=== PATIENT | male | born 1980 | race Caucasian/White ===

== ENCOUNTER 2019-10-10 15:17 | Outpatient (CLI) | payer SELFPAY ==
--- NOTE | 2019-10-10 | XR_ITS ---
WS: [id number] CERVICAL SPINE 6 VIEWS HISTORY: NECK PAIN COMPARISON: None available. AP and lateral views with flexion-extension. Straightening of the normal cervical lordosis. Mild motion artifact. With flexion and extension there is no significant instability. Disc spaces and vertebral body heights are normal. Lateral masses are aligned and the odontoid is intact. Soft tissues are normal. XR/XR cervical spine 4-5V [id number] IMPRESSION: Negative cervical spine series. No instability.
== END 2019-10-10 15:18 | disposition home or self-care (01) ==
LOC: RADOUTREAD 10-11 09:12
PROVIDERS: Family Provider Internal Medicine; PCP Internal Medicine; Visit Provider Internal Medicine
DX: M54.2 Cervicalgia (principal); N50.89 Other specified disorders of the male genital organs

== ENCOUNTER 2019-10-11 13:18 | Outpatient (CLI) | payer BC, SELFPAY ==
--- NOTE | 2019-10-11 | US_ITS ---
WS: [id number] TESTICULAR ULTRASOUND HISTORY: TESTICULAR NODULE COMPARISON: None available. TECHNIQUE: Real-time and color Doppler imaging or utilized to perform a testicular ultrasound. Right testicle: 5.5 cm x 3.2 cm x 2.4 cm. Normal size and echogenicity. No mass or torsion. Normal color Doppler is present throughout. Systolic and diastolic velocities are both present. No significant hydrocele. Right epididymis: Normal epididymis with no increased vascularity. Left testicle: 5.6 cm x 1.6 cm x 2.8 cm. Normal size and echogenicity. No mass or torsion. Normal color Doppler is present throughout. Systolic and diastolic velocities are both present. No significant hydrocele. Left epididymis: Simple cyst within the LEFT epididymis measures 1.4 x 1.0 cm. US/US scrotum [id number] IMPRESSION: 1. No testicular mass or torsion. 2. LEFT epididymal cyst.
== END 2019-10-11 13:19 | disposition home or self-care (01) ==
LOC: RADOUTREAD 15:54
PROVIDERS: Family Provider Internal Medicine; PCP Internal Medicine; Referring Provider Internal Medicine; Visit Provider Internal Medicine
DX: N50.89 Other specified disorders of the male genital organs (principal); N50.3 Cyst of epididymis

== ENCOUNTER 2020-06-02 13:25 | Outpatient (CLI) | payer BC, SELFPAY ==
--- NOTE | 2020-06-02 13:49 | MR_ITS ---
WS: [id number] MRI CERVICAL SPINE NONCONTRAST TECHNIQUE: Sagittal T1, T2 and STIR imaging. Axial T2, gradient, and fiesta imaging. CLINICAL INFORMATION: NECK PAIN COMPARISON: None. FINDINGS: Straightening of the normal cervical lordosis. Disc bulging worse at C6-7. Cord signal is normal. Nor mal prevertebral soft tissues. C2-C3: Normal. C3-C4: Disc osteophytic ridging. Moderate left and mild right bony foraminal narrowing. Moderate face t arthropathy. Spinal canal is patent. C4-C5: Disc osteophytic ridging with moderate left foraminal narrowing. Mild right foraminal narrowin g. Moderate facet arthropathy. Spinal canal is patent. C5-C6: Mild bilateral bony foraminal narrowing. Spinal canal is patent. Mild facet arthropathy. C6-C7: Shallow central disc osteophyte protrusion with contact of the cervical cord with mild central canal stenosis. Moderate left and mild right bony foraminal narrowing. Moderate facet arthropathy. C7-T1: Mild to moderate left and no significant right foraminal narrowing. Spinal canal is patent. Visualized brain stem structures: Normal. Prevertebral soft tissues: Normal. MR/MR cervical spin wo con* [id number] IMPRESSION: 1. Straightening of the normal cervical lordosis. No high-grade central canal narrowing. Cord signal is normal. 2. Shallow central disc osteophyte protrusion with contact of the ventral cerv ical cord. Mild central canal stenosis. 3. Mild to moderate bony foraminal narrowing worse at left C3-4, left C4-5, an d bilateral C6-C7 4. Mild to moderate facet arthropathy worse at bilateral C3-4, left C4-5, bila teral C5-C6 and bilateral C6-C7.
== END 2020-06-02 13:26 | disposition home or self-care (01) ==
LOC: RADWPI 13:30
PROVIDERS: Family Provider Internal Medicine; PCP Internal Medicine; Visit Provider Internal Medicine
DX: M25.78 Osteophyte, vertebrae (principal); M48.02 Spinal stenosis, cervical region; M47.812 Spondylosis without myelopathy or radiculopathy, cervical region
CPT/HCPCS: 72141

== ENCOUNTER 2020-09-16 11:08 | Emergency (ER) | payer BC, SELFPAY ==
[2020-09-16 11:12] VITALS: BP 182/109; PULSE 87; RESP 18; TEMP 36.2; O2SAT 97; BMI 32.1
--- NOTE | 2020-09-16 11:28 | ED_ITS ---
HPI - Extremity Problem General: Chief complaint: Extremity Problem,Nontraumatic Stated complaint: SWELLING IN RIGHT LEG Time Seen by Provider: 09/16/20 11:26 History of Present Illness: HPI Narrative: 40 yo female who was recently hospitalized for pancreatitis at another hospital. While he was in inpatient he received Lovenox for DVT prophylaxis at the time of discharge he reported he had a sore swollen area on his leg they thought it was a isolated superficial thrombophlebitis based on the description the patient and family gave. He was discharged 5 days ago and since then his leg has had increasing swelling he denies any chest pain or shortness of breath the leg is significantly uncomfortable enough for him to walk on that he was not able to go to work today. MD Complaint: extremity swelling Onset (ago): day(s) Pain Consistency: constant Location: right and lower extremity Quality: aching Radiation: none Relieving factors: immobilization and rest Exacerbating factors: weight bearing and walking Associated symptoms: Deny arthralgias, chest pain, fever(s), myalgias, rash or short of breath Context: immobilization and history of DVT Review of Systems Const: Denies: fever(s) ENMT: Denies: throat pain, ear or mastoid pain, nasal discharge or nasal congestion Card: Denies: chest pain Resp: Denies: dyspnea, productive cough or non-productive cough GI: Denies: abdominal pain, nausea, vomiting, hematemesis, coffee ground emesis, diarrhea, constipation, bloating, hematochezia or melena : Denies: flank pain, dysuria, urinary frequency or urinary urgency Skin/Breast: Denies: rash PFSH ED PFSH: Medical History (Updated 09/16/20 @ 12:05 by Jesus Paniagua DO) DVT (deep venous thrombosis) Pancreatitis Social History Smoking and tobacco status: current every day smoker Physical Exam Const: COMMON NORMALS: no acute distress GENERAL APPEARANCE: cooperative and comfortable ORIENTATION/CONSCIOUSNESS: Yes awake, Yes oriented to person, Yes oriented to place and Yes oriented to time HENMT: COMMON NORMALS: normocephalic, atraumatic and hearing grossly normal bilaterally HEAD & SCALP: normocephalic and atraumatic Neck/C-Spine: COMMON NORMALS: no JVD Resp: COMMON NORMALS: normal respiratory effort, No retractions, No use of accessory muscles and clear to auscultation bilaterally AUSCULTATION: clear to auscultation bilaterally Cardio: COMMON NORMALS: no JVD, regular rate, regular rhythm and No murmurs present (Cardio) RATE: regular rate RHYTHM: regular rhythm GI: COMMON NORMALS: Soft to palpation and No hepatosplenomegaly present AUSCULTATION: Yes normoactive bowel sounds PALPATION: Yes Soft to palpation, No Tenderness to palpation present (GI), No Guarding due to palpation present (GI) and Yes No hepatosplenomegaly present Extremity: COMMON NORMALS: normal to inspection, capillary refill normal, no clubbing, cyanosis or edema, no calf tenderness and no pedal edema Neuro: SENSORIUM/ORIENTATION: Yes oriented to person, Yes oriented to place and Yes oriented to time Skin: COMMON NORMALS: no rashes or lesions noted GENERAL SKIN EXAM: no rashes or lesions noted Course Vital Signs: Vital signs: Vital Signs Temperature 97.2 F L 09/16/20 11:12 Pulse Rate 87 09/16/20 11:12 Respiratory Rate 18 09/16/20 11:12 Blood Pressure 182/109 09/16/20 11:12 Pulse Oximetry 97 09/16/20 11:12 MDM - Extremity (Nontraumatic) MDM Narrative: Medical decision making narrative: Ultrasound shows clot in the femoral vein for its entire length. He has no shortness of breath no chest pain no tachycardia we will start him on Eliquis 10 mg twice daily for 7 days and 5 mg twice daily if he develops any shortness of breath chest pain or other problems return to the emergency room. Discharge Plan Discharge Patient Disposition: Home Clinical Impression: Deep vein thrombosis of lower extremity Condition: Stable Prescriptions: New Eliquis DVT-PE Treat 30D Start 5 mg (74 tabs) tablets,dose pack See Rx Instructions .ROUTE .COMPLEX Qty: 74 RF: 0 No Action metformin 500 mg tablet 500 mg PO BID RF: 0 Jardiance 25 mg tablet 25 mg PO DAILY RF: 0 aspirin [Adult Aspirin Regimen] 81 mg tablet,delayed release (DR/EC) 81 mg PO DAILY RF: 0 lisinopril 40 mg tablet 40 mg PO DAILY RF: 0 meloxicam [Mobic] 15 mg tablet 15 mg PO DAILY RF: 0 cephalexin [Keflex] 500 mg capsule 500 mg PO BID 10 Days Qty: 20 RF: 0 Discharge Orders: Discharge ED (Routine); Ordered 09/16/20 Ordered By: Jesus Paniagua Referrals: Eric Jimenez DO [Primary Care Provider] - Activity Restrictions/Additional Instructions: Start Eliquis as directed per package. 2 tablets twice a day for 7 days then 1 tablet twice a day. Coding Level of Care Code ED Exceptional Student Education Aide for Chg Fwd Exam Comprehensive
--- NOTE | 2020-09-16 11:28 | USCV_ITS ---
Bronson Madison Age: 40 Gender: M : 1980 Exam Date: 09/16/2020 11:46 Ordering Phys: Jesus Paniagua DO Technologist: Vicente Klein Exam Location: [facility] [place]_ Indication: LEG SWELLING PROCEDURES: Venous duplex imaging was performed in only the right lower extremity. The following venous structures were evaluated: common femoral vein, profunda vein, proximal portion of the greater saphenous vein, superficial femoral vein, and the popliteal vein. In addition, the posterior tibial and peroneal trunk were evaluated. Serial compression, augmentation maneuvers, and spectral Doppler flow evaluation were performed. FINDINGS: There is thrombus in the RLE extending from the CFV all the way down to the PTs. There is also clot noted in the GSV throughout the RLE- could be residual from previous. Festus Mata MD Edited by: PRATIBHA Battery Charger Tester (Electronically Signed) Final Date: 17 September 2020 14:42 Amended: 17 September 2020 14:42 C
[2020-09-16] MEDS: enoxaparin 120 mg/0.8 mL Syringe 110 MG SUBCUT (12:29)
[2020-09-16 12:36] VITALS: BP 135/88; PULSE 80; RESP 18; O2SAT 97
== END 2020-09-16 12:37 | disposition home or self-care (01) ==
PROVIDERS: Emergency Provider Family Medicine; PCP Internal Medicine
DX: I82.411 Acute embolism and thrombosis of right femoral vein (principal); Z79.82 Long term (current) use of aspirin; F17.210 Nicotine dependence, cigarettes, uncomplicated
CPT/HCPCS: 12345; 93971; 96372; 99281; 99283; J1650

== ENCOUNTER → 2020-10-29 12:03 | Outpatient (BNVA) | payer BC, SELFPAY | PROVIDERS: PCP Internal Medicine; Referring Provider Nurse Practitioner Family; Visit Provider Podiatrist Foot & Ankle Surgery | DX: M79.671 Pain in right foot (principal) | CPT/HCPCS: 73630 ==

== ENCOUNTER 2021-05-25 14:20 | Outpatient (CLI) | payer BC, SELFPAY | END 2021-05-25 14:21 | disposition home or self-care (01) | LOC: WOUND 14:21 | PROVIDERS: PCP Internal Medicine; Visit Provider Thoracic Surgery (Cardiothoracic Vascular Surgery) | DX: I96 Gangrene, not elsewhere classified (principal); E11.622 Type 2 diabetes mellitus with other skin ulcer; L97.812 Non-pressure chronic ulcer of other part of right lower leg with fat layer exposed; F17.210 Nicotine dependence, cigarettes, uncomplicated | CPT/HCPCS: 11042; G0463 ==

== ENCOUNTER 2021-06-01 13:54 | Outpatient (CLI) | payer BC, SELFPAY | END 2021-06-01 13:55 | disposition home or self-care (01) | LOC: WOUND 13:54 | PROVIDERS: PCP Internal Medicine; Visit Provider Nurse Practitioner Family | DX: E11.622 Type 2 diabetes mellitus with other skin ulcer (principal); L97.812 Non-pressure chronic ulcer of other part of right lower leg with fat layer exposed; F17.210 Nicotine dependence, cigarettes, uncomplicated | CPT/HCPCS: 11042 ==

== ENCOUNTER 2021-06-15 13:50 | Outpatient (CLI) | payer BC, SELFPAY | END 2021-06-15 13:51 | disposition home or self-care (01) | LOC: WOUND 13:51 | PROVIDERS: PCP Internal Medicine; Visit Provider Emergency Medicine | DX: E11.622 Type 2 diabetes mellitus with other skin ulcer (principal); L97.812 Non-pressure chronic ulcer of other part of right lower leg with fat layer exposed; F17.210 Nicotine dependence, cigarettes, uncomplicated | CPT/HCPCS: 11042 ==

== ENCOUNTER 2021-06-22 13:47 | Outpatient (CLI) | payer BC, SELFPAY | END 2021-06-22 13:48 | disposition home or self-care (01) | LOC: WOUND 13:48 | PROVIDERS: PCP Internal Medicine; Visit Provider Emergency Medicine | DX: E11.622 Type 2 diabetes mellitus with other skin ulcer (principal); L97.812 Non-pressure chronic ulcer of other part of right lower leg with fat layer exposed; F17.210 Nicotine dependence, cigarettes, uncomplicated | CPT/HCPCS: 11042; A6219 ==

== ENCOUNTER 2021-06-25 13:00 | Outpatient (CLI) | payer BC, SELFPAY ==
--- NOTE | 2021-06-25 | USCV_ITS ---
LE Venous Duplex RIGHT Bronson Madison Age: 41 Gender: M : 1980 Exam Date: 06/25/2021 13:34 Ordering Phys: Chuy Brown MD (Andy) ([email or web address]) Technologist: Calista Young Exam Location: [facility] Indication: RIGHT LEG PAIN HISTORY: Lower extremity pain. PROCEDURES: Venous duplex imaging was performed in only the right lower extremity. The following venous structures were evaluated: common femoral vein, profunda vein, proximal portion of the greater saphenous vein, superficial femoral vein, and the popliteal vein. In addition, the posterior tibial and peroneal trunk were evaluated. FINDINGS: There appears to be thrombus present in the RT mid and distal FV, Rt Popliteal, and throughout Rt GSV. CONCLUSIONS DVT right mid and distal femoral vein, popliteal, and superficial thrombus GSV Prelim to Dr. Lane by Yarn Winder at time of exam Festus Mata MD (Electronically Signed) Final Date: 26 June 2021 09:53 S
== END 2021-06-25 13:01 | disposition home or self-care (01) ==
LOC: RAD 13:04
PROVIDERS: PCP Family Medicine; Visit Provider Thoracic Surgery (Cardiothoracic Vascular Surgery)
DX: M79.604 Pain in right leg (principal); L97.812 Non-pressure chronic ulcer of other part of right lower leg with fat layer exposed; I87.2 Venous insufficiency (chronic) (peripheral); I82.411 Acute embolism and thrombosis of right femoral vein; I82.431 Acute embolism and thrombosis of right popliteal vein; I82.811 Embolism and thrombosis of superficial veins of right lower extremity
CPT/HCPCS: 93971

== ENCOUNTER 2021-06-26 10:32 | Outpatient (CLI) | payer BC, SELFPAY ==
--- NOTE | 2021-06-26 14:48 | ONC CON_ITS ---
Dr. Del Valle New Patient Note Patient: Bronson Madison Unit #: [id number]: 1980 Dicatated By: Eric Del Valle M.D.Date of Visit: Jun 26, 2021 Onc MED New Patient/Consult Referring Physician: [facility] Chief Complaint: Deep vein thrombosis. History of Present Illness: This is a 41-year-old man with deep vein thrombosis of the right leg, suspected to be recurrent. He has a known history of right lower extremity thromboses. His first episode occurred somewhere in the mid 1999 range. By their recollection, he was treated with Lovenox for 10 days followed by aspirin prophylaxis. He had no further thrombosis until September 2020 when he was admitted to [facility] with acute pancreatitis in association with severe hypertriglyceridemia. At that time he had developed swelling in the right leg. A venous Doppler on 09/16/2020 showed thrombus in the right lower extremity extending from the common femoral vein all the way down to the posterior tibial vein and peroneal trunk. Clot also was noted in the greater saphenous vein throughout the right leg. He has been on anticoagulation with apixaban, administered in the standard fashion of 10 mg twice daily for 7 days followed by 5 mg twice daily. He has since then been followed at wound care for management of a venous stasis ulceration on the right leg. The ulceration apparently has been showing improvement on treatment, but as part of that management he had a venous Doppler done yesterday. The preliminary report is that it is showing thrombus in the right mid and distal femoral vein and right popliteal vein. There is also thrombus noted throughout the right greater saphenous vein. He has been feeling pretty good generally, though he does report having some fatigue. He is working full-time as a cook, and he is on his feet most of the day. His ECOG score is 0. He has good appetite. He has no fever or night sweats. He has a smoker's cough. He does not complain of shortness of breath or chest pain. He has no GI or complaints other than occasional acid reflux. He has some joint pain in his hands and feet, he also has some lower back pain. He has occasional sinus headache and he occasionally has dizziness. He has some numbness in his hands. He has no other focal neurologic symptoms. He does not sleep well at night, and he also tends to have daytime somnolence. Past Medical History: Mr. Madison's medical history includes history of acute pancreatitis, history of right lower extremity deep vein thrombosis, hypertension, hypertriglyceridemia, and type II diabetes. 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 Medications: Apixaban 1 Tablet (of 5 mg) Oral b.i.d., Atorvastatin Calcium 1 Tablet (of 80 mg) Oral daily, basiglar 50 Unit(s) b.i.d., Cholecalciferol 1 Tablet (of 50 mcg ) Oral daily, Gemfibrozil 1 Tablet (of 600 mg) Oral b.i.d., Lisinopril 1 Tablet (of 40 mg) Oral daily, Metoprolol Tartrate 1 Tablet (of 25 mg) Oral daily, novalog PRN, Zinc 1 Tablet (of 50 mg) Oral daily Allergies: No Known Allergies. Social History: Mr. Madison is . He has history of smoking 1 pack of cigarettes daily for 20 years. He has moderate alcohol use estimated at 3-4 beers once or twice a week. Family History: Father had heart disease. Mother with ovarian cancer. A brother and a sister are in good health, to his knowledge. Review Of Symptoms: Constitutional - He has some fatigue and he has daytime somnolence, but he works full-time, and he has normal activity. He has good appetite. He has no fever or night sweats. ECOG score is 0, Eyes - No change in vision, ENMT - No hearing loss. He has tinnitus. Recently he has had some sinus drainage. No mouth sores. No sore throat or difficulty swallowing, Hematologic/Lymphatic - No abnormal bruising or bleeding, Respiratory - No shortness of breath. He has a smoker's cough. No pleuritic pain or hemoptysis, Cardiovascular - No angina pain. No palpitations, Gastrointestinal - No nausea or vomiting. He occasionally has acid reflux. No diarrhea or constipation. No blood in the stool or black stools, Genitourinary (M) - No dysuria or hematuria. No urinary frequency. No urgency or incontinence, Musculoskeletal - He has some joint pain in his hands and feet, and he also has some lower back pain, Integumentary - He has been going to wound care for an ulceration on the right lower leg. It has been showing gradual healing, Neurologic - He has occasional sinus headache. He occasionally has dizziness. He has some numbness in his hands. No other focal neurologic symptoms, Psychiatric - He has some anxiety. No depression. He does not sleep well at night. Vital Signs: Performed on Jun 26, 2021 11:40: 3, 3, 34.59 (HIGH), 2.47 sq.m, 74 in, 95 % (LOW), 89 /min, 18 /min, 133/94 mm(hg), 97.8 F (LOW), and 269.4 lbs (HIGH). Physical Examination: Constitutional - He appears to be in good general health, Eyes - Sclerae nonicteric. Conjunctivae clear, ENMT - No lesions noted in the oral cavity, Neck - No mass or thyromegaly, Hematologic/Lymphatic - No cervical, clavicular, or axillary adenopathy, Respiratory - Lungs are clear with good air movement bilaterally, Cardiovascular - Heart rhythm is regular. There is no murmur, gallop, or rub noted, Abdomen - Mildly distended. Liver and spleen are not enlarged. There is no abdominal mass or ascites noted and there is no inguinal adenopathy, Back/Spine - No spine or CVA tenderness noted, Extremities - There is chronic swelling of the right leg with the right calf circumference measuring 47 cm compared to 42 cm on the left. He has palpable dorsalis pedis pulses bilaterally, Integumentary - There are venous stasis changes in the medial aspect of the lower right leg. Within the inferior portion there is a small area of open ulceration. There are no suspicious skin lesions noted, Neurologic - No focal neurologic deficits noted. Problem List: 1. Deep vein thrombosis and superficial thrombosis involving the right lower extremity. 2. Hypertension. 3. Hyperlipidemia. 4. Type 2 diabetes. 5. History of acute pancreatitis in association with severe hypertriglyceridemia. Problems Addressed with this Encounter and Plan: 1. Patient with both deep vein thrombosis and superficial thrombosis of the right leg. His initial episode occurred in 2008 and was apparently treated with short-term anticoagulation. He then developed extensive deep vein thrombosis and superficial thrombosis of the right leg in September 2020. He has since then been on anticoagulation with apixaban. His repeat venous Doppler yesterday continues to show extensive deep vein thrombosis and superficial thrombosis in the right leg, but at this point it is uncertain to what extent that may be chronic or acute. If there is any component of acute thrombosis, it would represent a failure to anticoagulation with apixaban. For the time being, he will continue the apixaban at 5 mg twice daily pending review of the venous Doppler studies. He has advised that he needs to stop smoking. 2. He has developed venous insufficiency of the right leg, which certainly indicates that at least some component of this is chronic. There is an associated venous stasis ulceration on the right leg. 3. He has a poor sleep pattern and he has fatigue and excessive daytime somnolence, and he does need to be evaluated with a sleep study. Signed By: Eric Del Valle M.D. <<Signature on File>>
== END 2021-06-26 10:33 | disposition home or self-care (01) ==
LOC: ONCMED 10:37
PROVIDERS: PCP Family Medicine; Visit Provider Internal Medicine Medical Oncology
DX: I82.511 Chronic embolism and thrombosis of right femoral vein (principal); I82.551 Chronic embolism and thrombosis of right peroneal vein; I82.541 Chronic embolism and thrombosis of right tibial vein; I10 Essential (primary) hypertension; E78.5 Hyperlipidemia, unspecified; E11.9 Type 2 diabetes mellitus without complications; Z79.01 Long term (current) use of anticoagulants; Z79.899 Other long term (current) drug therapy
CPT/HCPCS: 99205

== ENCOUNTER 2021-06-29 09:43 | Outpatient (CLI) | payer BC, SELFPAY | END 2021-06-29 09:44 | disposition home or self-care (01) | LOC: WOUND 09:47 | PROVIDERS: PCP Family Medicine; Visit Provider Emergency Medicine | DX: E11.622 Type 2 diabetes mellitus with other skin ulcer (principal); L97.812 Non-pressure chronic ulcer of other part of right lower leg with fat layer exposed; F17.210 Nicotine dependence, cigarettes, uncomplicated | CPT/HCPCS: 11042 ==

== ENCOUNTER 2021-07-03 06:30 | Outpatient (CLI) | payer BC, SELFPAY ==
[2021-07-08 12:38] LABS: Heparin XA Low Molecular 0.92 IU/mL
== END 2021-07-03 06:31 | disposition home or self-care (01) ==
LOC: ONCMED 06:31
PROVIDERS: PCP Family Medicine; Visit Provider Internal Medicine Medical Oncology
DX: I82.401 Acute embolism and thrombosis of unspecified deep veins of right lower extremity (principal); I10 Essential (primary) hypertension; E78.5 Hyperlipidemia, unspecified; E11.9 Type 2 diabetes mellitus without complications; Z87.898 Personal history of other specified conditions
CPT/HCPCS: 36415; 85520

== ENCOUNTER 2021-07-06 09:45 | Outpatient (CLI) | payer BC, SELFPAY | END 2021-07-06 09:46 | disposition home or self-care (01) | LOC: WOUND 09:45 | PROVIDERS: PCP Family Medicine; Visit Provider Emergency Medicine | DX: E11.622 Type 2 diabetes mellitus with other skin ulcer (principal); L97.812 Non-pressure chronic ulcer of other part of right lower leg with fat layer exposed; F17.210 Nicotine dependence, cigarettes, uncomplicated | CPT/HCPCS: 11042 ==

== ENCOUNTER 2021-07-16 07:51 | Outpatient (CLI) | payer BC, SELFPAY | END 2021-07-16 07:52 | disposition home or self-care (01) | LOC: WOUND 07:52 | PROVIDERS: PCP Family Medicine; Visit Provider Emergency Medicine | DX: E11.622 Type 2 diabetes mellitus with other skin ulcer (principal); L97.812 Non-pressure chronic ulcer of other part of right lower leg with fat layer exposed; F17.210 Nicotine dependence, cigarettes, uncomplicated | CPT/HCPCS: 11042 ==

== ENCOUNTER 2021-07-23 08:15 | Outpatient (CLI) | payer BC, SELFPAY | END 2021-07-23 08:16 | disposition home or self-care (01) | LOC: WOUND 08:15 | PROVIDERS: PCP Family Medicine; Visit Provider Emergency Medicine | DX: E11.622 Type 2 diabetes mellitus with other skin ulcer (principal); L97.812 Non-pressure chronic ulcer of other part of right lower leg with fat layer exposed; F17.210 Nicotine dependence, cigarettes, uncomplicated | CPT/HCPCS: 15271; Q4186 ==

== ENCOUNTER 2021-07-30 08:16 | Outpatient (CLI) | payer BC, SELFPAY | END 2021-07-30 08:17 | disposition home or self-care (01) | LOC: WOUND 08:17 | PROVIDERS: PCP Family Medicine; Visit Provider Nurse Practitioner Family | DX: Z09 Encounter for follow-up examination after completed treatment for conditions other than malignant neoplasm (principal); F17.210 Nicotine dependence, cigarettes, uncomplicated; I73.9 Peripheral vascular disease, unspecified | CPT/HCPCS: 99212 ==

== ENCOUNTER 2021-08-11 08:49 | Outpatient (CLI) | payer BC, SELFPAY ==
--- NOTE | 2021-08-11 15:52 | ONC FU_ITS ---
Dr. Del Valle Patient Follow-Up Note Patient: Bronson Madison Unit #: [id number]: 1980 Dicatated By: Eric Del Valle M.D.Date of Visit:Aug 11, 2021 Onc Med Follow-up/Prog Note Chief Complaint: Deep vein thrombosis. History of Present Illness: This is a 41-year-old man with recurrent deep vein thrombosis of the right leg. He has a known history of right lower extremity thromboses. His first episode occurred somewhere in the mid 1999 range. By his recollection, he was treated with Lovenox for 10 days followed by aspirin prophylaxis. He had no further thrombosis until September 2020 when he was admitted to [facility] with acute pancreatitis in association with severe hypertriglyceridemia. At that time he had developed swelling in the right leg. A venous Doppler on 09/16/2020 showed thrombus in the right lower extremity extending from the common femoral vein all the way down to the posterior tibial vein and peroneal trunk. Clot also was noted in the greater saphenous vein throughout the right leg. He has been on anticoagulation with apixaban, administered in the standard fashion of 10 mg twice daily for 7 days followed by 5 mg twice daily. He was then followed at wound care for management of a venous stasis ulceration on the right leg. A repeat venous doppler on 06/25/2021 showed thrombus in the right mid and distal femoral vein and right popliteal vein. There was also thrombus noted throughout the right greater saphenous vein. I had seen him initially on 06/26/2021. After review of the Doppler studies with the radiologist, I did opt to have him restart anticoagulation with Lovenox for 10 days. He then transitioned back to apixaban 5 mg twice daily. He is seen now for a follow-up visit. He has had some improvement in the right leg since my initial visit with him, though he still has some swelling and discomfort associated with chronic venous insufficiency. The ulceration has healed. He is working, but he does have fatigue and he also complains of daytime somnolence. ECOG score is 1. He has good appetite. He has no fever or night sweats. He is seeing a dentist for an abscessed tooth. He has some chronic cough, and he is trying to quit smoking. He does not complain of shortness of breath or chest pain. He has no GI or complaints. He has no other significant joint or bone pain. He has no focal neurologic symptoms. Medications: Apixaban 1 Tablet (of 5 mg) Oral b.i.d., Atorvastatin Calcium 1 Tablet (of 80 mg) Oral daily, basiglar 50 Unit(s) b.i.d., Cholecalciferol 1 Tablet (of 50 mcg ) Oral daily, Gemfibrozil 1 Tablet (of 600 mg) Oral b.i.d., Lisinopril 1 Tablet (of 40 mg) Oral daily, Metoprolol Tartrate 1 Tablet (of 25 mg) Oral daily, novalog PRN, Zinc 1 Tablet (of 50 mg) Oral daily Allergies: No Known Allergies. Vital Signs: Performed on Aug 11, 2021 12:44 Height - 74.00 in Weight - 260.2 lbs (LOW) BSA - 2.43 sq.m BMI - 33.41 (HIGH) Temperature - 98.3 F (LOW) Pulse - 83 /min Respiration - 18 /min BP - 138/92 mm(hg) O2 Sat - 96 % Pain - 4 Fatigue - 5 Physical Examination: Constitutional - He looks pretty good generally, Eyes - Sclerae nonicteric. Conjunctivae clear, ENMT - No lesions noted in the oral cavity, Hematologic/Lymphatic - No cervical, clavicular, or axillary adenopathy, Respiratory - Lungs are clear with good air movement bilaterally, Cardiovascular - Heart rhythm is regular. There is no murmur, gallop, or rub noted, Abdomen - Soft. Liver and spleen are not enlarged. There is no abdominal mass or ascites noted and there is no inguinal adenopathy, Extremities - There are severe venous stasis changes involving the lower right leg. There is only mild swelling. There is some residual scar at the site of the ulceration in the medial lower right leg, but it is completely healed, Neurologic - No focal neurologic deficits noted. Problem List: 1. Recurrent deep vein thrombosis of the right leg. He has associated chronic venous insufficiency. 2. Hypertension. 3. Hyperlipidemia. 4. Type 2 diabetes. 5. History of acute pancreatitis in association with severe hypertriglyceridemia. Problems Addressed with this Encounter and Plan: 1. Patient with both deep vein thrombosis and superficial thrombosis of the right leg. His initial episode occurred in 2008 and was apparently treated with short-term anticoagulation. He then developed extensive deep vein thrombosis and superficial thrombosis of the right leg in September 2020. He then began on anticoagulation with apixaban. His repeat venous Doppler in June 2021 showed extensive deep vein thrombosis and superficial thrombosis in the right leg. At that point it was uncertain to what extent the thrombosis may been chronic, but at some component did appear to be acute. As such, I did opt to change his anticoagulation to Lovenox for 10 days. He then transition back to apixaban 5 mg twice daily. He has since then had some improvement in the right leg, but he clearly has a significant component of chronic venous insufficiency, he will need to continue long-term anticoagulation. At this point he will continue regular follow-up with Dr. Blanton. I will plan to see him again as needed. 3. He reprted having a poor sleep pattern and he has had fatigue and excessive daytime somnolence. He will be scheduled for a sleep study. He will have further evaluation as indicated. Signed By: Eric Del Valle M.D. <<Signature on File>>
== END 2021-08-11 08:50 | disposition home or self-care (01) ==
LOC: ONCMED 08:51
PROVIDERS: PCP Family Medicine; Visit Provider Internal Medicine Medical Oncology
DX: I82.501 Chronic embolism and thrombosis of unspecified deep veins of right lower extremity (principal); I87.2 Venous insufficiency (chronic) (peripheral); I10 Essential (primary) hypertension; E78.5 Hyperlipidemia, unspecified; E11.9 Type 2 diabetes mellitus without complications; E78.1 Pure hyperglyceridemia; Z86.39 Personal history of other endocrine, nutritional and metabolic disease; Z79.01 Long term (current) use of anticoagulants; Z79.899 Other long term (current) drug therapy
CPT/HCPCS: G0463

== ENCOUNTER 2024-03-15 13:24 | Emergency (ER) | payer BC, SELFPAY ==
[2024-03-15 13:52] VITALS: BP 230/154; PULSE 82; RESP 18; TEMP 37; O2SAT 96; BMI 33.3
[2024-03-15] MEDS: ketorolac 30 mg/mL INJ IVP (14:52)
[2024-03-15] MEDS: morphine 4 mg/mL SDV 1 mL IVP (14:54)
[2024-03-15] MEDS: orphenadrine 30 mg/mL Inj 2 mL 60 MG IM (14:54)
[2024-03-15] MEDS: dexamethasone 10 mg/mL INJ IM (14:54)
[2024-03-15 15:11] LABS: Basophils # 0.1 10^3/uL (0.0-0.1); Basophils % 0.8 %; Eosinophils # 0.1 10^3/uL (0.0-0.8); Eosinophils % 0.8 %; Lymphocytes # 3.1 10^3/uL (0.8-4.8); Lymphocytes % 34.9 %; Mean Corpuscular HGB Conc 35.6 g/dL (30-55); Mean Corpuscular Hemoglobin 28.8 pg (27-33); Mean Corpuscular Volume 80.8 fl (82-101); Mean Platelet Volume 9.6 fL (7.4-10.4); Monocytes # 0.5 10^3/uL (0.2-0.9); Monocytes % 5.9 %; Neutrophils # 5.04 10^3/uL (1.8-7.7); Neutrophils % 57.4 %; Nucleated Red Blood Cells % 0 %; Platelet Count 263 10^3/cmm (157-399); Red Blood Count 5.94 10^6/uL (3.85-5.65); Red Cell Distribution Width 12.6 % (12.1-15.1); White Blood Count 8.79 10^3/uL (3.29-11.43)
[2024-03-15 15:16] VITALS: BP 200/129; PULSE 74; O2SAT 94
--- NOTE | 2024-03-15 15:31 | W.ED.BACK ---
HPI - Back Pain/Injury General: Chief Complaint: Back Pain/Injury Stated Complaint: lower back pain Time Seen by Provider: 03/15/24 14:42 Source: patient Mode of arrival: ambulatory History of Present Illness: 44-year-old male comes in complaining of low back pain this been going on intermittently for the last 3 weeks he has tried various [id number] medications and techniques massages Tylenol topical analgesics heat and cold none of which seems to have relieved that it is actually progressively getting worse. Patient has pain radiating down into the right leg and lateral thigh. He has no saddle paresthesias. No fecal incontinence no urinary retention. No specific trauma he thinks this is related or to his work. He does a lot of heavy lifting and moving at work although he can isolate a particular incident or episode that seem to cause it suddenly. No trauma or falls no previous surgery to his back. He does have a history of PEs he is on apixaban. No increased leg swelling no chest pain or shortness of breath. MD elicited complaint: back pain Pertinent past history: prior back pain Onset (ago): week(s) (3) Timing: constant Quality: sharp Location: lumbar spine Radiation: right upper leg Exacerbating factors: movement, walking and lifting Relieving factors: immobilization and supine Associated symptoms: Reports weakness; Deny abdominal pain, arthralgias, chills, change in bowel habits, difficulty walking, dysuria, fatigue, fecal incontinence, fever(s), hematuria, myalgias, nausea, numbness, syncope, tingling/numbness/burning, urinary frequency, urinary urgency or vomiting Treatments prior to arrival: cold therapy, heat therapy, NSAIDS, acetaminophen and other (Massage) Review of Systems Const: Denies: fever(s), chills or fatigue Card: Denies: chest pain or syncope Resp: Denies: dyspnea GI: Denies: abdominal pain, nausea, vomiting, fecal incontinence or change in bowel habits : Denies: dysuria, urinary frequency, urinary urgency or hematuria Musc: Denies: neck pain or back pain Skin/Breast: Denies: rash Neuro: Denies: difficulty walking [facility] ED PFSH: Medical History Plantar fasciitis of right foot Diabetes mellitus Peripheral Vascular Disease Pes planus of both feet Pancreatitis DVT (deep venous thrombosis) Social History Smoking and tobacco/nicotine status: current every day tobacco/nicotine user Physical Exam Const: GENERAL APPEARANCE: cooperative ORIENTATION/CONSCIOUSNESS: Yes awake, Yes oriented to person, Yes oriented to place and Yes oriented to time HENMT: COMMON NORMALS: normocephalic, atraumatic and hearing grossly normal bilaterally HEAD & SCALP: normocephalic and atraumatic Resp: COMMON NORMALS: normal respiratory effort, No retractions, No use of accessory muscles and clear to auscultation bilaterally AUSCULTATION: clear to auscultation bilaterally Cardio: COMMON NORMALS: regular rate, regular rhythm and No murmurs present (Cardio) RATE: regular rate RHYTHM: regular rhythm GI: COMMON NORMALS: Soft to palpation and No hepatosplenomegaly present AUSCULTATION: Yes normoactive bowel sounds PALPATION: Yes Soft to palpation, No Tenderness to palpation present (GI), No Guarding due to palpation present (GI) and Yes No hepatosplenomegaly present Back/Pelvis: OTHER: Straight leg raising is negative. Sensation lower extremities normal. Dorsum plantarflexion 5 of 5 Extremity: COMMON NORMALS: normal to inspection, capillary refill normal, no clubbing, cyanosis or edema, no calf tenderness and no pedal edema Neuro: SENSORIUM/ORIENTATION: Yes oriented to person, Yes oriented to place and Yes oriented to time Skin: COMMON NORMALS: no rashes or lesions noted GENERAL SKIN EXAM: no rashes or lesions noted Course Vital Signs: Vital signs: Vital Signs Temperature 98.6 F 03/15/24 13:52 Pulse Rate 81 03/15/24 18:06 Respiratory Rate 18 03/15/24 13:52 Blood Pressure 164/98 03/15/24 17:30 Pulse Oximetry 97 03/15/24 18:06 Oxygen Delivery Me thod Room Air 03/15/24 17:30 MDM - Back Pain/Injury Medical Decision Making Patient has lumbar back pain with some radiculopathy consistent with an L4 V nerve root irritation. No red flag symptoms no trauma history he has improvement with the medications given in the emergency room will start him on anti-inflammatory steroid taper muscle relaxers. Additionally patient's blood pressure is markedly elevated add amlodipine 10 mg daily have him follow-up with her primary care doctor return if he has worsening symptoms. Differential Diagnosis Likely lumbar radiculopathy, sciatica and strain of lumbar region Medical Records I reviewed the patient's medical records. Labs I reviewed the patient's lab results. 03/15/24 15:01 03/15/24 15:01 Laboratory Results WBC 8.79 10^3/uL (3.29-11.43) 03/15/24 15:01 RBC 5.94 10^6/uL (3.85-5.65) H 03/15/24 15:01 Hgb 17.10 g/dL (11.27-16.99) H 03/15/24 15:01 Hct 48.0 % (37-53) 03/15/24 15: MCV 80.8 fl (82-101) L 03/15/24 15:01 MCH 28.8 pg (27-33) 03/15/24 15:01 MCHC 35.6 g/dL (30-55) 03/15/24 15:01 RDW 12.6 % (12.1-15.1) 03/15/24 15:01 Plt Count 263 10^3/cmm (157-399) 03/15/24 15:01 MPV 9.6 fL (7.4-10.4) 03/15/24 15:01 Neut % (Auto) 57.4 % 03/15/24 15:01 Lymph % (Auto) 34.9 % 03/15/24 15:01 [place] % (Auto) 5.9 % 03/15/24 15:01 Eos % (Auto) 0.8 % 03/15/24 15: Baso % (Auto) 0.8 % 03/15/24 15:01 Neut # (Auto) 5.04 10^3/uL (1.8-7.7) 03/15/24 15:01 Lymph # (Auto) 3.1 10^3/uL (0.8-4.8) 03/15/24 15:01 [place] # (Auto) 0.5 10^3/uL (0.2-0.9) 03/15/24 15:01 Eos # (Auto) 0.1 10^3/uL (0.0-0.8) 03/15/24 15:01 Baso # (Auto) 0.1 10^3/uL (0.0-0.1) 03/15/24 15:01 Nucleated RBC % (auto) 0 % 03/15/24 15:01 Nucleated RBCs # 0.0 /100WBC 03/15/24 15:01 Sodium 136 mmol/L (136-145) 03/15/24 15:01 Potassium 3.7 mmol/L (3.5-5.1) 03/15/24 15:01 Chloride 99 mmol/L (98-107) 03/15/24 15:01 Carbon Dioxide 25 mmol/L (22-29) 03/15/24 15:01 Anion Gap 15.7 (5-19) 03/15/24 15:01 BUN 12 mg/dL (6-20) 03/15/24 15:01 Creatinine 0.8 mg/dL (0.7-1.2) 03/15/24 15:01 GFR Calculation 105.0 mL/min (90-130) 03/15/24 15:01 Glucose 147 mg/dL (65-115) H 03/15/24 15:01 Calculated Osmolality 284 mOsm/kg (285-295) L 03/15/24 15:01 Calcium 9.0 mg/dL (8.5-10.5) 03/15/24 15:01 Total Bilirubin 0.6 mg/dL (0.15-1.2) 03/15/24 15:01 AST 24 U/L (0-40) 03/15/24 15:01 ALT 26 U/L (0-41) 03/15/24 15:01 Alkaline Phosphatase 70 U/L (40-130) 03/15/24 15:01 Total Protein 7.1 g/dL (6.6-8.7) 03/15/24 15:01 Albumin 4.2 g/dL (3.5-5.2) 03/15/24 15:01 Globulin 2.9 g/dL (1.3-4.6) 03/15/24 15:01 No radiology studies performed this visit Discharge Plan Discharge Patient Disposition: Home Clinical Impression: Lumbar radiculopathy, HTN (hypertension) Condition: Stable Prescriptions: New tizanidine 4 mg tablet 4 mg PO Q6H PRN (Reason: muscle spasticity) Qty: 20 0RF Rx Instructions: do not exceed 3 doses per 24 hrs prednisone 20 mg tablet 20 mg PO TID Qty: 15 0RF Rx Instructions: 1 p.o. 3 times daily x3 days, 1 p.o. twice daily x2 days, 1 p.o. daily x2 days diclofenac sodium 75 mg tablet,delayed release (DR/EC) 75 mg PO Q12H PRN (Reason: pain) Qty: 20 0RF amlodipine 10 mg tablet 10 mg PO DAILY Qty: 30 0RF No Action lisinopril 40 mg tablet 40 mg PO DAILY Janelleaglpaulo [place] U-100 Insulin 100 unit/mL (3 mL) insulin pen 50 unit SUBCUT BID atorvastatin 40 mg tablet 40 mg PO DAILY gemfibrozil 600 mg tablet 600 mg PO BID (DME) Accommodative Orthotics See Rx Instructions .Route .MEDSUPPLY Qty: 1 0RF Rx Instructions: As directed triamcinolone acetonide 0.1 % ointment 1 applic topical BID Qty: 453.6 1RF Rx Instructions: Apply to affected area no more than 2 weeks/month. Not for use on face. amoxicillin 500 mg capsule 500 mg PO BID metoprolol tartrate 25 mg tablet 12.5 mg PO BID erythromycin 5 mg/gram (0.5 %) ointment 1 applic ophthalmic (eye) QID Qty: 3.5 0RF Rx Instructions: Apply every 3 hrs while awake, do not exceed 6x per day Eliquis DVT-PE Treat 30D Start 5 mg (74 tabs) tablets,dose pack See Rx Instructions .ROUTE .COMPLEX Qty: 74 0RF Rx Instructions: orally per package directions Discharge Orders: Discharge ED (Routine); Ordered 03/15/24 Ordered By: Jesus Paniagua Referrals: Becky Blanton DO [Primary Care Provider] - Discharge Diet: Usual diet Discharge Activity: Increase activity as tolerated Patient Instructions: Acute Low Back Pain (ED), Opioid Safety, Pain Management Activity Restrictions/Additional Instructions: Thank you for choosing [facility] for your healthcare needs today. It is very important that you follow up as instructed or that you return to the Emergency Department should you have concerns or if your condition changes or worsens in any way. Follow-up with your primary care doctor if pain persists or worsens. You should also follow-up with your primary care doctor to reevaluate your blood pressure. Coding Level of Care Code ED Electronic Parts Salesperson for Joan Demarco
[2024-03-15 16:09] LABS: Alanine Aminotransferase 26 U/L (0-41); Albumin Level 4.2 g/dL (3.5-5.2); Alkaline Phosphatase 70 U/L (40-130); Anion Gap 15.7 (5-19); Aspartate Amino Transferase 24 U/L (0-40); Blood Urea Nitrogen 12 mg/dL (6-20); Carbon Dioxide 25 mmol/L (22-29); Chloride 99 mmol/L (98-107); Creatinine Clr Calc Pharmacy 160.8227; Globulin 2.9 g/dL (1.3-4.6); Glucose 147 mg/dL (65-115); Osmolality Calculated 284 mOsm/kg (285-295); Potassium 3.7 mmol/L (3.5-5.1); Sodium 136 mmol/L (136-145); Total Bilirubin 0.6 mg/dL (0.15-1.2); Total Protein 7.1 g/dL (6.6-8.7)
[2024-03-15] MEDS: labetalol 5 mg/mL SDV 20mL 10 MG IVP (16:32)
[2024-03-15] MEDS: hyDRALAzine 20 mg/mL INJ 1 mL 10 MG IVP (16:33)
[2024-03-15 17:30] VITALS: BP 164/98; PULSE 80; O2SAT 95
[2024-03-15 18:06] VITALS: PULSE 81; O2SAT 97
== END 2024-03-15 18:07 | disposition home or self-care (01) ==
PROVIDERS: Emergency Provider Family Medicine; PCP Family Medicine
DX: M54.16 Radiculopathy, lumbar region (principal); I10 Essential (primary) hypertension; E11.51 Type 2 diabetes mellitus with diabetic peripheral angiopathy without gangrene; Z79.899 Other long term (current) drug therapy; Z79.01 Long term (current) use of anticoagulants; Z86.711 Personal history of pulmonary embolism; Z86.718 Personal history of other venous thrombosis and embolism; F17.210 Nicotine dependence, cigarettes, uncomplicated
CPT/HCPCS: 80053; 85025; 96372; 96374; 96375; 99284; J0360; J1100; J1885; J2270; J2360; J3490

== ENCOUNTER 2024-07-03 18:43 | Emergency (ER) | payer BC, SELFPAY ==
[2024-07-03] VITALS (10 sets, daily range): BP systolic 113–152; BP diastolic 71–91; PULSE 68–77; RESP 14–19; TEMP 36.4; O2SAT 95–99
--- NOTE | 2024-07-03 19:07 | XRR_ITS ---
PROCEDURE INFORMATION: Exam: XR Chest Exam date and time: 07/03/2024 7:15 PM Age: 44 years old Clinical indication: Pain; Chest pressure; Additional info: Left chest wall pain TECHNIQUE: Imaging protocol: Radiologic exam of the chest. Views: 1 view. COMPARISON: CR XR chest 2V* [id number] 02/12/2019 7:40 PM FINDINGS: Lungs: Unremarkable. No consolidation. Pleural spaces: Unremarkable. No pleural effusion. No pneumothorax. Heart/Mediastinum: Unremarkable. No cardiomegaly. Bones/joints: Unremarkable. XR/XR chest 1V portable [id number] IMPRESSION: No acute findings.
--- NOTE | 2024-07-03 19:09 | ED_ITS ---
HPI - Back Pain/Injury 2 General: Chief Complaint: Back Pain/Injury Stated Complaint: Low BP,Fall, Back and Knee pain Time Seen by Provider: 07/03/24 19:00 Source: patient and family Mode of arrival: ambulatory Limitations: no limitations History of Present Illness: Patient is a 44-year-old male presenting to the emergency department for a fall onset prior to arrival. Patient states he has been dizzy throughout the day, states he was smoking a cigarette today when he suddenly woke up on the deck, unsure why he fell or what might of caused it. He denies any symptoms prior to the incident. Notes that he is currently on blood thinners for DVTs in his right lower extremity. He does note that since the fall he is having severe left-sided anterior chest wall pain, worse with deep breathing. No other significant injuries from the fall, specifically no head trauma and no neurological symptoms to report. He is on metoprolol, lisinopril, and states he recently was started on Lasix. Spouse states the main concern and why they came to the emergency department was because after the incident, patient took his blood pressure and found to be hypotensive for him, as he normally runs 150s/90s, and was 100s/40s. MD elicited complaint: fall Onset (ago): minute(s) Associated symptoms: Deny abdominal pain, chills, dysuria, fatigue, fever(s), nausea or vomiting Related Data Home Medications Medication Instructions Recorded Confirmed lisinopril 40 mg tablet 40 mg PO DAILY 04/23/20 04/02/23 atorvastatin 40 mg tablet 40 mg PO DAILY 10/29/20 04/02/23 gemfibrozil 600 mg tablet 600 mg PO BID 10/29/20 04/02/23 insulin glargine 100 unit/mL (3 50 unit SUBCUT BID 10/29/20 04/02/23 mL) subcutaneous pen (Basaglar KwikPen U-100 Insulin) amoxicillin 500 mg capsule 500 mg PO BID 04/02/23 04/02/23 metoprolol tartrate 25 mg tablet 12.5 mg PO BID 04/02/23 04/02/23 Previous Rx's Medication Instructions Recorded apixaban 5 mg (74 tabs) tablets in See Rx Instructions PO .COMPLEX 09/16/20 a dose pack (Eliquis DVT-PE Treat #74 ea 30D Start) Accommodative Orthotics #1 ea 10/29/20 triamcinolone acetonide 0.1 % 1 applic topical BID #453.6 grams 11/26/22 topical ointment erythromycin 5 mg/gram (0.5 %) eye 1 applic ophthalmic (eye) QID #3.5 04/02/23 ointment (3.5 gram tube) grams amlodipine 10 mg tablet 10 mg PO DAILY #30 tabs 03/15/24 diclofenac sodium 75 mg 75 mg PO Q12H PRN pain #20 tabs 03/15/24 tablet,delayed release prednisone 20 mg tablet 20 mg PO TID #15 tabs 03/15/24 tizanidine 4 mg tablet 4 mg PO Q6H PRN muscle spasticity 03/15/24 #20 tabs Allergies Allergy/AdvReac Type Severity Reaction Status Date / Time gabapentin Allergy Unknown Verified 07/03/24 18:54 Review of Systems 2 General: Reports: 10 or more systems reviewed and unremarkable except in HPI and below Const: Reports: other (Fall); Denies: fever(s), chills or fatigue Eyes: Denies: change in vision ENMT: Denies: throat pain, ear or mastoid pain or nasal discharge Card: Reports: chest pain (Left anterior chest wall); Denies: palpitations, swelling of feet/ankles or lightheadedness Resp: Denies: dyspnea, productive cough or wheezing GI: Denies: abdominal pain, nausea, vomiting, diarrhea or constipation : Denies: flank pain, difficulty urinating, dysuria or urinary frequency Musc: Denies: neck pain, back pain or joint pain Skin/Breast: Denies: rash Neuro: Reports: dizziness; Denies: headache(s), numbness in extremities or weakness in extremities PFSH ED 2 PFSH: Medical History Plantar fasciitis of right foot Diabetes mellitus Peripheral Vascular Disease Pes planus of both feet Pancreatitis DVT (deep venous thrombosis) Social History Smoking and tobacco/nicotine status: current every day tobacco/nicotine user Physical Exam 2 Const: COMMON NORMALS: no acute distress, patient oriented x3 and no limitations GENERAL APPEARANCE: cooperative, comfortable and well developed ORIENTATION/CONSCIOUSNESS: Yes awake, Yes oriented to person, Yes oriented to place and Yes oriented to time HENMT: COMMON NORMALS: normocephalic, atraumatic and hearing grossly normal bilaterally HEAD & SCALP: normocephalic and atraumatic Eye: COMMON NORMALS: Equal, round and reactive pupils present, EOMs intact bilaterally and conjunctivae normal CONJUNCTIVA: Yes conjunctivae normal P UPIL: Yes Equal, round and reactive pupils present Neck/C-Spine: COMMON NORMALS: full ROM, supple and no JVD Chest: OTHER: There is reproducible tenderness to palpation to the left anterior chest wall extending to the lateral chest wall, no step-off deformity Resp: COMMON NORMALS: normal respiratory effort, No retractions, No use of accessory muscles and clear to auscultation bilaterally AUSCULTATION: clear to auscultation bilaterally Cardio: COMMON NORMALS: no JVD, regular rate, regular rhythm, No clicks present (Cardio), No murmurs present (Cardio) and No rub (Cardio) RATE: r egular rate RHYTHM: regular rhythm GI: COMMON NORMALS: Normal to inspection, nondistended, normoactive bowel sounds present, Soft to palpation and non-tender AUSCULTATION: Yes normoactive bowel sounds PALPATION: Yes Soft to palpation RECTAL EXAM: Yes deferred Extremity: COMMON NORMALS: normal to inspection, full ROM and capillary refill normal Neuro: COMMON NORMALS: patient oriented x3, CN's II-XII intact bilaterally, moves all extremities, no focal motor deficits and no sensory deficits noted SENSORIUM/ORIENTATION: Yes oriented to person, Yes oriented to place and Yes oriented to time Skin: COMMON NORMALS: no rashes or lesions noted GENERAL SKIN EXAM: no rashes or lesions noted Course 2 Vital Signs: Vital signs: Vital Signs Temperature 97.6 F 07/03/24 18:48 Pulse Rate 71 07/03/24 21:04 Respiratory Rate 18 07/03/24 22:18 Blood Pressure 131/76 07/03/24 21:04 Pulse Oximetry 99 07/03/24 21:04 Oxygen Delivery Me thod Room Air 07/03/24 21:04 MDM - Back Pain/Injury Medical Decision Making Patient had presented after a fall today, unknown what may have caused it, no symptoms prior to and states that he did not hit his head but did injure his left chest. His primary complaint was the pain to the left chest, family in room and noted his blood pressure was hypotensive for him after she took it. Of note, he was started on Lasix this past month, and additionally takes metoprolol and lisinopril for blood pressure. Currently is on Eliquis for DVTs. Initially EKG obtained and reviewed with physician showed normal sinus rhythm rate of 69 with no acute STEMI or other arrhythmias. His initial troponin elevated at 31, and upon further discussion with patient, family clarifies that his troponin has been chronically elevated. CBC unremarkable, CMP did show some signs of dehydration with hyponatremia, bump in creatinine and BUN. Chest x-ray did not demonstrate any rib fractures or acute cardiopulmonary processes. A repeat troponin showed a 3 point bump to 34, and repeat EKG again was normal showing normal sinus rhythm rate of 67 with no STEMI. A urinalysis was negative, urine drug screen just showed marijuana which she states he has smoked prior and never had issues with syncope and collapse. Initially Tylenol ordered, did not seem to help. Was started on fluids for the clinical dehydration. Due to the trend in troponin and patient's history, I spoke with Dr. Sanders, who states that this could be admitted for an observation for a syncope, however could also be treated and monitored at home after head CT rules out any intracranial pathology. CT head was negative, and after given patient for morphine is rechecked and notes significant improvement in his pain. I did have shared decision making with patient and family in the room, who elects that they do not think admission is necessary at this time and can treat/monitor at home with serial blood pressures and close monitoring. His following episode could be secondary to the dehydration as a result of recent Lasix addition to his medications, though other etiologies include orthostatic hypotension or mechanical fall. Thoroughly discussed with patient and family reasons to return, of which they understand. All other questions and concerns addressed at this time. This patient's case was discussed with Dr. Bird who agrees with disposition. Labs 07/03/24 19:10 07/03/24 19:10 Radiology Impressions Chest X-Ray 07/03/24 19:07 IMPRESSION: No acute findings. Head CT 07/03/24 22:10 IMPRESSION: 1. No acute intracranial abnormality. 2. Small-vessel ischemic disease. Laboratory Results WBC 9.29 10^3/uL (3.29-11.43) 07/03/24 19:10 RBC 5.23 10^6/uL (3.85-5.65) 07/03/24 19:10 Hgb 15.30 g/dL (11.27-16.99) 07/03/24 19:10 Hct 43.1 % (37-53) 07/03/24 19:10 MCV 82.4 fl (82-101) 07/03/24 19:10 MCH 29.3 pg (27-33) 07/03/24 19:10 MCHC 35.5 g/dL (30-55) 07/03/24 19:10 RDW 11.5 % (12.1-15.1) L 07/03/24 19:10 Plt Count 270 10^3/cmm (157-399) 07/03/24 19:10 MPV 10.1 fL (7.4-10.4) 07/03/24 19:10 Neut % (Auto) 45.3 % 07/03/24 19:10 Lymph % (Auto) 44.0 % 07/03/24 19:10 [place] % (Auto) 6.8 % 07/03/24 19:10 Eos % (Auto) 2.3 % 07/03/24 19:10 Baso % (Auto) 1.0 % 07/03/24 19:10 Neut # (Auto) 4.21 10^3/uL (1.8-7.7) 07/03/24 19:10 Lymph # (Auto) 4.1 10^3/uL (0.8-4.8) 07/03/24 19:10 [place] # (Auto) 0.6 10^3/uL (0.2-0.9) 07/03/24 19:10 Eos # (Auto) 0.2 10^3/uL (0.0-0.8) 07/03/24 19:10 Baso # (Auto) 0.1 10^3/uL (0.0-0.1) 07/03/24 19:10 Nucleated RBC % (auto) 0 % 07/03/24 19:10 Nucleated RBCs # 0.0 /100WBC 07/03/24 19:10 Sodium 132 mmol/L (136-145) L 07/03/24 19:10 Potassium 3.7 mmol/L (3.5-5.1) 07/03/24 19:10 Chloride 92 mmol/L (98-107) L 07/03/24 19:10 Carbon Dioxide 24 mmol/L (22-29) 07/03/24 19:10 Anion Gap 19.7 (5-19) H 07/03/24 19:10 BUN 42 mg/dL (6-20) H 07/03/24 19:10 Creatinine 1.7 mg/dL (0.7-1.2) H 07/03/24 19:10 GFR Calculation 44.0 mL/min (90-130) L 07/03/24 19:10 Glucose 179 mg/dL (65-115) H 07/03/24 19:10 Calculated Osmolality 289 mOsm/kg (285-295) 07/03/24 19:10 Calcium 8.9 mg/dL (8.5-10.5) 07/03/24 19:10 Total Bilirubin 0.2 mg/dL (0.15-1.2) 07/03/24 19:10 AST 28 U/L (0-40) 07/03/24 19:10 ALT 31 U/L (0-41) 07/03/24 19:10 Alkaline Phosphatase 66 U/L (40-130) 07/03/24 19:10 Troponin T Baseline 31 ng/L (0-15) H 07/03/24 19:10 Troponin T 120 Minute 34.23 ng/L (0-15) H 07/03/24 21:14 Delta Troponin T 3.23 ABS# (0-10) 07/03/24 21:14 Total Protein 7.2 g/dL (6.6-8.7) 07/03/24 19:10 Albumin 4.2 g/dL (3.5-5.2) 07/03/24 19:10 Globulin 3.0 g/dL (1.3-4.6) 07/03/24 19:10 Urine Color Yellow (Yellow) 07/03/24 19:32 Urine Appearance Clear (CLEAR) 07/03/24 19:32 Urine pH 5.5 (5-7) 07/03/24 19:32 Ur Specific [place] 1.011 (1.005-1.030) 07/03/24 19:32 Urine Protein Negative (Negative) 07/03/24 19:32 Urine Glucose (UA) 3+ (Normal) H 07/03/24 19:32 Urine Ketones Negative (Negative) 07/03/24 19:32 Urine Blood Negative (Negative) 07/03/24 19:32 Urine Nitrate Negative (Negative) 07/03/24 19:32 Urine Bilirubin Negative (Negative) 07/03/24 19:32 Urine Urobilinogen 0.2 mg/dL (Negative) 07/03/24 19:32 Ur Leukocyte Esterase Negative (Negative) 07/03/24 19:32 Amorphous Sediment Not Reportable 07/03/24 19:32 Urine Opiates Screen Negative ng/mL (Negative) 07/03/24 19:32 Ur Barbiturates Screen Negative ng/mL (Negative) 07/03/24 19:32 Ur Phencyclidine Scrn Negative ng/mL (Negative) 07/03/24 19:32 Ur Amphetamines Screen Negative ng/mL (Negative) 07/03/24 19:32 U Benzodiazepines Scrn Negative ng/mL (Negative) 07/03/24 19:32 Urine Cocaine Screen Negative ng/mL (Negative) 07/03/24 19:32 U Marijuana (THC) Screen Positive ng/mL (Negative) H 07/03/24 19:32 All radiology interpretation(s) finalized by discharge Discharge Plan Discharge Patient Disposition: Home Clinical Impression: Acute dehydration Chest wall contusion Qualifiers: Encounter type: initial encounter Laterality: left Qualified Code(s): S20.212A - Contusion of left front wall of thorax, initial encounter Condition: Stable Prescriptions: No Action lisinopril 40 mg tablet 40 mg PO DAILY Janelleaglpaulo [place] U-100 Insulin 100 unit/mL (3 mL) insulin pen 50 unit SUBCUT BID atorvastatin 40 mg tablet 40 mg PO DAILY gemfibrozil 600 mg tablet 600 mg PO BID (DME) Accommodative Orthotics See Rx Instructions .Route .MEDSUPPLY Qty: 1 0RF Rx Instructions: As directed triamcinolone acetonide 0.1 % ointment 1 applic topical BID Qty: 453.6 1RF Rx Instructions: Apply to affected area no more than 2 weeks/month. Not for use on face. amoxicillin 500 mg capsule 500 mg PO BID metoprolol tartrate 25 mg tablet 12.5 mg PO BID erythromycin 5 mg/gram (0.5 %) ointment 1 applic ophthalmic (eye) QID Qty: 3.5 0RF Rx Instructions: Apply every 3 hrs while awake, do not exceed 6x per day Eliquis DVT-PE Treat 30D Start 5 mg (74 tabs) tablets,dose pack See Rx Instructions .ROUTE .COMPLEX Qty: 74 0RF Rx Instructions: orally per package directions tizanidine 4 mg tablet 4 mg PO Q6H PRN (Reason: muscle spasticity) Qty: 20 0RF Rx Instructions: do not exceed 3 doses per 24 hrs prednisone 20 mg tablet 20 mg PO TID Qty: 15 0RF Rx Instructions: 1 p.o. 3 times daily x3 days, 1 p.o. twice daily x2 days, 1 p.o. daily x2 days diclofenac sodium 75 mg tablet,delayed release (DR/EC) 75 mg PO Q12H PRN (Reason: pain) Qty: 20 0RF amlodipine 10 mg tablet 10 mg PO DAILY Qty: 30 0RF Discharge Orders: Discharge ED (Routine); Ordered 07/03/24 Ordered By: Soren Coombs Referrals: Becky Blanton DO [Primary Care Provider] - Discharge Diet: As Directed Discharge Activity: Increase activity as tolerated Patient Instructions: Dehydration (ED), Chest Wall Pain (ED), Pain Management Activity Restrictions/Additional Instructions: Keep plan with follow-up with primary care as discussed. Continue taking your medications as prescribed. Adequate fluid intake, and pulmonary hygiene as discussed. You may apply ice for added relief, and take Tylenol. With any new or concerning symptoms he may have, please return for reevaluation. Stand Alone Forms: Work/School Release Coding Level of Care Code ED Shipping Assistant for Joan Demarco
--- NOTE | 2024-07-03 19:11 | ECG_ITS ---
[facility] Test Date: 2024-07-03 Pat Name: Bronson Madison Department: Room: Gender: Male Product Strategy Director: : 1980 Requested By: Yana Gao Order Number: [id number] Jessica MD: Benny Ricci M.D. Measurements Intervals [place] Rate: 69 P: 7 VT: 170 QRS: 5 QRSD: 105 T: 44 QT: 386 QTc: 415 Interpretive Statements SINUS RHYTHM Compared to ECG 02/12/2019 17:46:29 Sinus tachycardia no longer present Intraventricular conduction delay no longer present T-wave abnormality no longer present Electronically Signed On 07-04-2024 23:36:53 CDT by Benny Ricci M.D. [id number]
[2024-07-03 19:18] LABS: Basophils # 0.1 10^3/uL (0.0-0.1); Eosinophils # 0.2 10^3/uL (0.0-0.8); Eosinophils % 2.3 %; Hematocrit 43.1 % (37-53); Lymphocytes # 4.1 10^3/uL (0.8-4.8); Mean Corpuscular HGB Conc 35.5 g/dL (30-55); Mean Corpuscular Hemoglobin 29.3 pg (27-33); Mean Corpuscular Volume 82.4 fl (82-101); Mean Platelet Volume 10.1 fL (7.4-10.4); Monocytes # 0.6 10^3/uL (0.2-0.9); Monocytes % 6.8 %; Neutrophils # 4.21 10^3/uL (1.8-7.7); Neutrophils % 45.3 %; Nucleated Red Blood Cells % 0 %; Platelet Count 270 10^3/cmm (157-399); Red Blood Count 5.23 10^6/uL (3.85-5.65); Red Cell Distribution Width 11.5 % (12.1-15.1); White Blood Count 9.29 10^3/uL (3.29-11.43)
[2024-07-03 19:37] LABS: Troponin(5th) Baseline 31 ng/L (0-15)
[2024-07-03 19:46] LABS: Alanine Aminotransferase 31 U/L (0-41); Albumin Level 4.2 g/dL (3.5-5.2); Alkaline Phosphatase 66 U/L (40-130); Anion Gap 19.7 (5-19); Aspartate Amino Transferase 28 U/L (0-40); Blood Urea Nitrogen 42 mg/dL (6-20); Calcium 8.9 mg/dL (8.5-10.5); Carbon Dioxide 24 mmol/L (22-29); Chloride 92 mmol/L (98-107); Creatinine Clr Calc Pharmacy 74.2582; Glucose 179 mg/dL (65-115); Osmolality Calculated 289 mOsm/kg (285-295); Potassium 3.7 mmol/L (3.5-5.1); Sodium 132 mmol/L (136-145); Total Bilirubin 0.2 mg/dL (0.15-1.2); Total Protein 7.2 g/dL (6.6-8.7)
[2024-07-03 19:50] LABS: Add Urine Microscopic? NO
[2024-07-03 19:54] LABS: Bilirubin Urine Negative (Negative); Blood Urine Negative (Negative); Glucose Urine UA 3+ (Normal); Ketones Urine Negative (Negative); Leukocyte Esterase Urine Negative (Negative); Nitrate Urine Negative (Negative); Protein Urine Negative (Negative); Specific Gravity, Urine 1.011 (1.005-1.030); Urine Appearance Clear (CLEAR); Urine Color Yellow (Yellow); Urobilinogen Urine 0.2 mg/dL (Negative); pH Urine 5.5 (5-7)
[2024-07-03 20:01] LABS: Amphetamines Screen Urine Negative (Negative); Barbiturates Screen Urine Negative (Negative); Benzodiazepines Screen Urine Negative (Negative); Cocaine Screen Urine Negative (Negative); Opiate Screen Urine Negative (Negative); PCP Screen Urine Negative (Negative); THC Screen Urine Positive (Negative)
[2024-07-03 20:03] LABS: Charge for UA Resulting for Rev
[2024-07-03] MEDS: sodium chloride 0.9% 1,000 ML 999 ML IV (20:27)
[2024-07-03] MEDS: acetaminophen 500 mg Tablet 1000 MG PO (20:48)
--- NOTE | 2024-07-03 21:08 | ECG_ITS ---
[facility] Test Date: 2024-07-03 Pat Name: Bronson Madison Department: Room: Gender: Male Technology Strategist: : 1980 Requested By: Soren Loredo Order Number: [id number] Lopez MD: Benny Ricci M.D. Measurements Intervals [place] Rate: 67 P: 6 MS: 160 QRS: 7 QRSD: 100 T: 38 QT: 405 QTc: 430 Interpretive Statements SINUS RHYTHM Compared to ECG 07/03/2024 19:11:36 No significant changes Electronically Signed On 07-04-2024 23:44:16 CDT by Benny Ricci M.D. [id number]
[2024-07-03 21:45] LABS: Troponin 5 2HR 34.23 ng/L (0-15); Troponin 5 2HR Delta 3.23 ABS# (0-10)
--- NOTE | 2024-07-03 22:10 | CTR_ITS ---
PROCEDURE INFORMATION: Exam: CT Head Without Contrast Exam date and time: 07/03/2024 10:32 PM Age: 44 years old Clinical indication: Other: Passed out TECHNIQUE: Imaging protocol: Computed tomography of the head without contrast. Radiation optimization: All CT scans at this facility use at least one of these dose optimization techniques: automated exposure control; mA and/or kV adjustment per patient size (includes targeted exams where dose is matched to clinical indication); or iterative reconstruction. COMPARISON: MR cervical spin wo con* [id number] 06/02/2020 1:39 PM RADIATION DOSE METRICS: Total DLP (mGy-cm): 1220.74 FINDINGS: Brain: Subcortical and periventricular white matter changes consistent with small-vessel ischemic disease in the appropriate clinical setting. Small-vessel ischemic disease. No acute intracranial abnormality. Cerebral ventricles: No ventriculomegaly. Paranasal sinuses: Visualized sinuses are unremarkable. No fluid levels. Mastoid air cells: Visualized mastoid air cells are well aerated. Bones: Unremarkable. No acute fracture. Soft tissues: Unremarkable. CT/CT head wo con* [id number] IMPRESSION: 1. No acute intracranial abnormality. 2. Small-vessel ischemic disease.
[2024-07-03] MEDS: morphine 4 mg/mL SDV 1 mL IVP (22:18)
== END 2024-07-03 23:27 | disposition home or self-care (01) ==
PROVIDERS: Emergency Medicine; Emergency Provider Physician Assistant; PCP Family Medicine
DX: S20.212A Contusion of left front wall of thorax, initial encounter (principal); E86.0 Dehydration; F17.210 Nicotine dependence, cigarettes, uncomplicated; Z79.01 Long term (current) use of anticoagulants; Z86.718 Personal history of other venous thrombosis and embolism
CPT/HCPCS: 36415; 70450; 71045; 80053; 80306; 81003; 84484; 85025; 93005; 96361; 96374; 99285; J2270; J7030